=== PATIENT | male | born 1965 | race American Indian/Alaskan Native ===

== ENCOUNTER 2017-10-31 07:10 | Emergency (ER) | payer OTHER ==
[2017-10-31 07:42] VITALS: BP 131/95
[2017-10-31] MEDS ORDERED: BACTRIM DS PO ONE (08:42)
[2017-10-31] MEDS ORDERED: NORCO 5/325 PO ONE (08:42)
[2017-10-31] MEDS ORDERED: BOOSTRIX IM ONE (08:42)
--- NOTE | 2017-10-31 08:42 | Emergency Department Report ---
Abscess Boil HPI - HPI Chief Complaint: Animal Bite Stated Complaint: SPIDER BITE Time Seen by Provider: 10/31/17 08:02 Duration: 4 Days Location: Other (left forearm and left abdomen) Severity: Moderate (6/10) History: Yes Pain (left forearm and left abdomen insect bites that is painful, red and swollen), Yes Purulent Drainage (left forearm), Yes Insect Bite ( tetanus vaccine is not up-to-date), No Fever, No Numbness, No Foreign Body, No Previous History HPI: This is a 52 male he reports that he was bitten by unwitnessed fighter about 3 days ago to his left forearm and left abdomen. She said the one to his left forearm he use a pen and he had some drainage from site but is still red and swollen and painful and to left abdomen is hard, painful and red. Denies any nausea or vomiting or numbness or tingling. Denies any fever or chills. Pain is 6 out of 10 and sharp. Pain is worse with touching but no alleviating factors and tetanus vaccine is not up-to-date Home Medications: Previous Rx's Medication Instructions Recorded Last Taken Type Ibuprofen [Motrin] 600 mg PO Q8H PRN 18 Days #15 10/31/17 Unknown Rx tablet Sulfamethoxazole/Trimethoprim 1 each PO BID 10 Days #20 tablet 10/31/17 Unknown Rx [Bactrim DS TAB] Allergies/Adverse Reactions: Allergies Allergy/AdvReac Type Severity Reaction Status Date / Time No Known Allergies Allergy Verified 10/31/17 07:42 ED Review of Systems ROS: Stated complaint: SPIDER BITE Other details as noted in HPI Constitutional: denies: chills, fever ENT: denies: ear pain, throat pain, congestion Respiratory: denies: cough, shortness of breath, SOB with exertion, SOB at rest , stridor, wheezing Cardiovascular: denies: chest pain, palpitations, dyspnea on exertion, edema, syncope Gastrointestinal: denies: nausea, vomiting Genitourinary: denies: urgency, dysuria Musculoskeletal: denies: back pain, joint swelling, arthralgia Skin: rash, other (red swollen area to left forearm and left abdomen). denies: lesions Neurological: denies: headache, numbness, paresthesias ED Past Medical Hx - Past Medical History Previous Medical History?: Yes Hx Psychiatric Treatment: Yes (ANXIETY, DEPRESSION) Additional medical history: SLEEP APNEA, RESTLESS LEG SYNDROME - Surgical History Past Surgical History?: No - Family History Family history: hypertension - Social History Smoking Status: Never Smoker Substance Use Type: None - Medications Home Medications: Home Medications Medication Instructions Recorded Confirmed Last Taken Type Ibuprofen [Motrin] 600 mg PO Q8H PRN 18 Days #15 10/31/17 Unknown Rx tablet Sulfamethoxazole/Trimethoprim 1 each PO BID 10 Days #20 tablet 10/31/17 Unknown Rx [Bactrim DS TAB] ED Abscess Boil Physical Exam - Exam General: Vital signs noted. No distress. Alert and acting appropriately. This is a 52 male well-nourished well-developed in no acute distress. Front/Back of Body, Lg (Color): 1 - Patient with 2 cm indurated, tender to palpate area to left forearm and left abdomen. He has approximately 2 cm erythema surrounding and left forearm and 5 cm surrounding and left abdomen. No drainage noted but he has open into Center. No fluctuance. 2 - lt abdomen induratedabscess, nonfluctuant Size: 2 cm Exam: Yes Tenderness, Yes Surrounding Cellulites/Erythema (left forearm and left abdomen), Yes Normal Neurologic Exam, Yes Normal Circulation, No Fluctuance (non fluctuant), No Lymphangitis, No Crepitation, No Heart Murmur ( S1S2) I & D Note - I & D Note I & D Note: Unable to drain abscess due to nonfluctuance ED Course Vital Signs 10/31/17 07:26 Temperature 98.2 F Pulse Rate 106 H Respiratory 16 Rate Blood Pressure 131/95 O2 Sat by Pulse 100 Oximetry - Reevaluation(s) Reevaluation #1: 10/31/17 09:25 Patient receive booster 0.5 mL, Erskine and Bactrim DS and emergency room Critical care attestation.: If time is entered above; I have spent that time in minutes in the direct care of this critically ill patient, excluding procedure time. ED Medical Decision Making - Medical Decision Making This is a 52-year-old male that reports that he was bitten by a spider and he has an abscess on his left forearm and left abdomen. He reports that he try to drain abscess on left forearm but is still painful and swollen with redness along with abscess on his left abdomen. Patient tetanus vaccine is up-to-date and easier for treatment She was seen and examined by myself and found to have small abscesses to left forearm and left abdomen. Positive induration without any fluctuance. Small opening to Center both abscesses. Ear is tender to palpate patient with no known respiratory problems. Oral airways patent. Pain is controlled and patient given Boostrix and Bactrim DS in the emergency room. Abscess and cellulitis secondary to spider bite-0.5 mL IM. Bactrim DS one tablet and will discharge home and Bactrim. Arthralgia left forearm-better with pain medication. Erskine 5/325 mg 2 tablets by mouth and will discharge home and Motrin Pt discharged home in stable condition, vital signs are stable he is afebrile. Pain is controlled. He is aware that if he developed increased redness, swelling and pain with restriction of movement to affected areas spider bites return to the emergency room otherwise to follow-up with his primary care physician or [facility]. Patient given prescription for Bactrim DS and Motrin. ED Disposition Clinical Impression: Accidental spider bite, Cellulitis and abscess of unspecified site, Arthralgia of left forearm Disposition: DC-01 TO HOME OR SELFCARE Is pt being admited?: No Does the pt Need Aspirin: No Condition: Stable Instructions: Animal Bite (ED), Insect Bite or Sting (ED), Abscess (ED), Cellulitis (ED) Additional Instructions: Please see discharge instruction in acute wound care Apply warm compresses to affected area 4 times a day to facilitate then and increased drainage return to emergency room in 3 days for removal of packing Keep affected area clean and dry Motrin for pain and please take medication with food to prevent nausea or irritation to stomach lining Take Bactrim DS for infection Return to the emergency room if, he developed fever, chills, increased pain and drainage from site, nausea and vomited, increase in redness and/or weakness. Prescriptions: Ibuprofen [Motrin] 600 mg PO Q8H PRN 18 Days #15 tablet PRN Reason: Pain Sulfamethoxazole/Trimethoprim [Bactrim DS TAB] 1 each PO BID 10 Days #20 tablet Referrals: PRIMARY CARE, [Primary Care Provider] - 2-3 Days Forms: Accompanied Note, Work/School Release Form(ED)
[2017-10-31] MEDS ORDERED: TRIPLE ANTIBIOTIC TP ONE (08:43)
== END 2017-10-31 09:46 | disposition home or self-care (01) ==
LOC: ED 07:10
DX: L02.211 Cutaneous abscess of abdominal wall (principal); L02.414 Cutaneous abscess of left upper limb; F41.9 Anxiety disorder, unspecified; F32.9 Major depressive disorder, single episode, unspecified; G47.30 Sleep apnea, unspecified; G25.81 Restless legs syndrome
CPT/HCPCS: 90471; A6250

== ENCOUNTER 2020-03-08 10:55 | Emergency (ER) | payer OTHER ==
[2020-03-08 11:37] VITALS: BP 114/74
[2020-03-08] MEDS ORDERED: HYDROcodone/ACETAMINOPHEN 5-325 MG TAB PO STA (14:00)
--- NOTE | 2020-03-08 14:03 | Emergency Department Report ---
ED Lower Extremity HPI - General Chief Complaint: Extremity Injury, Upper Stated Complaint: LEFT KNEE PAIN X 1 WEEK Time Seen by Provider: 03/08/20 13:59 Source: patient Mode of arrival: Ambulatory Limitations: No Limitations - History of Present Illness MD Complaint: knee injury -: Gradual, week(s) (1) Injury: Knee: Left Type of Injury: unknown (WOKE WITH THE SEVERE PAIN TO KNEE 1 WEEK AGO) Severity: mild, moderate Worsens With: movement, palpation Associated Symptoms: able to partially bear weight Treatments Prior to Arrival: splint (KNEE BRACE WITH STAYS) - Related Data Previous Rx's Medication Instructions Recorded Last Taken Type Ibuprofen [Motrin] 600 mg PO Q8H PRN 18 Days #15 10/31/17 Unknown Rx tablet Sulfamethoxazole/Trimethoprim 1 each PO BID 10 Days #20 tablet 10/31/17 Unknown Rx [Bactrim DS TAB] Ketorolac [Toradol] 10 mg PO Q6H PRN #14 tablet 03/08/20 Unknown Rx Allergies Allergy/AdvReac Type Severity Reaction Status Date / Time No Known Allergies Allergy Verified 10/31/17 07:42 ED Review of Systems ROS: Stated complaint: LEFT KNEE PAIN X 1 WEEK Other details as noted in HPI Comment: All other systems reviewed and negative ED Past Medical Hx - Past Medical History Previous Medical History?: Yes Hx Psychiatric Treatment: Yes (ANXIETY, DEPRESSION) Additional medical history: SLEEP APNEA, RESTLESS LEG SYNDROME - Social History Smoking Status: Never Smoker Substance Use Type: None - Medications Home Medications: Home Medications Medication Instructions Recorded Confirmed Last Taken Type Ibuprofen [Motrin] 600 mg PO Q8H PRN 18 Days #15 10/31/17 Unknown Rx tablet Sulfamethoxazole/Trimethoprim 1 each PO BID 10 Days #20 tablet 10/31/17 Unknown Rx [Bactrim DS TAB] Ketorolac [Toradol] 10 mg PO Q6H PRN #14 tablet 03/08/20 Unknown Rx ED Physical Exam - General Limitations: No Limitations General appearance: alert, in no apparent distress - Head Head exam: Present: atraumatic, normocephalic - Eye Eye exam: Present: normal appearance - ENT ENT exam: Present: mucous membranes moist - Neck Neck exam: Present: normal inspection - Respiratory Respiratory exam: Present: normal lung sounds bilaterally. Absent: respiratory distress - Cardiovascular Cardiovascular Exam: Present: regular rate, normal rhythm. Absent: systolic murmur, diastolic murmur, rubs, gallop - GI/Abdominal GI/Abdominal exam: Present: soft, normal bowel sounds - Rectal Rectal exam: Present: deferred - Extremities Exam Extremities exam: Present: normal inspection, tenderness - Expanded Lower Extremity Exam Right Knee exam: Present: tenderness, erythema, full knee extension. Absent: laceration, ecchymosis, deformity, pain/laxity with valgus, pain/laxity with varus - Back Exam Back exam: Present: normal inspection - Neurological Exam Neurological exam: Present: alert, oriented X3 - Psychiatric Psychiatric exam: Present: normal affect, normal mood - Skin Skin exam: Present: warm, dry, intact, normal color. Absent: rash ED Course Vital Signs 03/08/20 11:34 Temperature 98 F Pulse Rate 106 H Blood Pressure 114/74 [Right] ED Lower Extremity MDM - Radiology Data Radiology results: report reviewed [facility] [address] [place] [address] XRay Report Signed Patient: KENAN WALKER MR#: [id number] : 1965 Acct:[id number] Age/Sex: 54 / M ADM Date: 03/08/20 Loc: ED Attending Dr: Ordering Physician: RUTHANN SWENSON Date of Service: 03/08/20 Procedure(s): XR knee 3V LT Accession Number(s): [id number] cc: RUTHANN SWENSON Fluoro Time In Minutes: LEFT KNEE 3 VIEWS INDICATION / CLINICAL INFORMATION: Severe left knee pain COMPARISON: None available. FINDINGS: BONES and JOINT(S): No acute fracture or subluxation. No significant arthritis. SOFT TISSUES: No significant abnormality. ADDITIONAL FINDINGS: None. IMPRESSION: 1. No acute findings. Signer Name: Mariano Kellogg MD Signed: 03/08/2020 3:24 PM Workstation Name: [id number] Transcribed By: MN Dictated By: Mariano Kellogg MD Electronically Authenticated By: Mariano Kellogg MD Signed Date/Time: 03/08/20 1524 DD/ 152 TD/TT: Critical care attestation.: If time is entered above; I have spent that time in minutes in the direct care of this critically ill patient, excluding procedure time. ED Disposition Clinical Impression: Knee pain Disposition: DC-01 TO HOME OR SELFCARE Is pt being admited?: No Does the pt Need Aspirin: No Condition: Stable Instructions: Acute Knee Pain, Adult, How to Use Cold Therapy, [id number], Musculoskeletal Pain, Joint Pain Additional Instructions: continue to wear knee brace and use crutches until cleared by orthopedic Prescriptions: Ketorolac [Toradol] 10 mg PO Q6H PRN #14 tablet PRN Reason: Pain Referrals: [facility] [Provider Group] - 3-5 Days PRIMARY CARE,MD [Primary Care Provider] - 3-5 Days
--- NOTE | 2020-03-08 15:28 | XRay Report ---
LEFT KNEE 3 VIEWS INDICATION / CLINICAL INFORMATION: Severe left knee pain COMPARISON: None available. FINDINGS: BONES and JOINT(S): No acute fracture or subluxation. No significant arthritis. SOFT TISSUES: No significant abnormality. ADDITIONAL FINDINGS: None. IMPRESSION: 1. No acute findings. Signer Name: Mariano Kellogg MD Signed: 03/08/2020 3:24 PM Workstation Name: [id number]
== END 2020-03-08 16:28 | disposition home or self-care (01) ==
LOC: ED 10:55
DX: M25.562 Pain in left knee (principal); F41.9 Anxiety disorder, unspecified; F32.9 Major depressive disorder, single episode, unspecified; Z79.1 Long term (current) use of non-steroidal anti-inflammatories (NSAID); Z79.899 Other long term (current) drug therapy
CPT/HCPCS: 99283